=== PATIENT | female | born 1975 | race Caucasian/White ===

== ENCOUNTER 2016-11-14 18:39 | Emergency (ER) | payer MEDICARE ==
[~2016-11-14] VITALS: Ht 154.9 cm; Wt 74.8 kg
[2016-11-14 18:40] VITALS: BP_SYST 145
[2016-11-14] MEDS ORDERED: IBUPROFEN 800 MG TABLET PO ONE (20:15)
[2016-11-14 21:15] VITALS: BP_SYST 145
== END 2016-11-14 21:15 | disposition home or self-care (01) ==
LOC: SED 18:39
DX: M25.532 Pain in left wrist (principal); E11.9 Type 2 diabetes mellitus without complications; I10 Essential (primary) hypertension
CPT/HCPCS: 73090; 99284

== ENCOUNTER 2017-09-10 18:57 | Emergency (ER) | payer MEDICARE ==
[~2017-09-10] VITALS: Ht 162.6 cm; Wt 90.7 kg
[2017-09-10 19:13] VITALS: BP_SYST 156
[2017-09-10] MEDS ORDERED: LIDOCAINE VISCOUS 2%, 15 ML UDC MM ONE (21:00)
[2017-09-10] MEDS ORDERED: BELLADONNA ALKALOIDS/PHENOBARB 5 ML UDC PO ONE (21:00)
[2017-09-10] MEDS ORDERED: MAG-AL HYDROX/SIMETH 30 ML UDC PO ONE (21:00)
[2017-09-10] MEDS ORDERED: NACL 0.9% 1,000 ML IV ONE (21:24)
[2017-09-10] MEDS ORDERED: KETOROLAC TROMETHAMINE 30 MG VIAL IVP ONE (21:30)
[2017-09-10 22:05] LABS: BASOPHILS # (AUTO) 0.1 K/uL (0.0-0.2); BASOPHILS % (AUTO) 0.9 % (0.0-2.0); EOSINOPHILS # (AUTO) 0.1 K/uL (0.0-0.4); HEMATOCRIT 41.2 % (36-48); HEMOGLOBIN 13.3 g/dL (12.0-16.0); LYMPHOCYTES # (AUTO) 3.5 K/uL (1.0-5.5); LYMPHOCYTES % (AUTO) 31.6 % (20.5-51.5); MEAN CORPUSCULAR HEMOGLOBIN 26 pg (27-31); MEAN CORPUSCULAR HGB CONC 32 % (32-36); MEAN CORPUSCULAR VOLUME 82 fL (79.0-98.0); MONOCYTES # (AUTO) 0.6 K/uL (0.0-1.0); MONOCYTES % (AUTO) 5.7 % (1.7-9.3); NEUTROPHILS # (AUTO) 6.9 K/uL (1.8-7.7); NEUTROPHILS % (AUTO) 60.8 % (40.0-70.0); PLATELET COUNT (AUTO) 325 K/uL (130-430); RED BLOOD CELL COUNT(AUTO) 5.05 MIL/uL (4.2-6.2); RED CELL DISTRIBUTION WIDTH 18.6 % (9.0-15.0); WHITE BLOOD COUNT (AUTO) 11.2 K/uL (4.8-10.8)
[2017-09-10 22:11] LABS: CALCIUM 9.3 mg/dL (8.4-11.0); CREATININE 0.72 mg/dL (0.55-1.30); POTASSIUM 3.4 mmol/L (3.5-5.1)
[2017-09-10 22:15] LABS: TOTAL BILIRUBIN 0.3 mg/dL (0.0-1.0)
[2017-09-10] MEDS ORDERED: PANTOPRAZOLE SODIUM 40 MG/VIAL (PROTONIX) IVP ONE (22:30)
[2017-09-10 23:33] VITALS: BP_SYST 142
== END 2017-09-10 23:33 | disposition home or self-care (01) ==
LOC: SED 18:57
DX: K21.9 Gastro-esophageal reflux disease without esophagitis (principal); R03.0 Elevated blood-pressure reading, without diagnosis of hypertension; E11.9 Type 2 diabetes mellitus without complications
CPT/HCPCS: 36415; 76700; 80053; 83690; 85025; 93005; 96374; 96375; 99285; C9113; J1885; J2001; J7030

== ENCOUNTER 2017-11-17 11:30 | Emergency (ER) | payer MEDICARE ==
[~2017-11-17] VITALS: Ht 154.9 cm; Wt 70.3 kg
[2017-11-17 11:30] VITALS: BP_SYST 135
[2017-11-17] MEDS ORDERED: DEXAMETHASONE SOD PHOSPHATE 10 MG/ML VIAL IM ONE (12:15)
[2017-11-17] MEDS ORDERED: cefTRIAXone 1 GM VIAL IM ONE (12:15)
[2017-11-17 12:45] VITALS: BP_SYST 135
== END 2017-11-17 12:45 | disposition home or self-care (01) ==
LOC: SED 11:30
DX: T63.441A Toxic effect of venom of bees, accidental (unintentional), initial encounter (principal); T78.40XA Allergy, unspecified, initial encounter; E11.9 Type 2 diabetes mellitus without complications; K21.9 Gastro-esophageal reflux disease without esophagitis; Y92.89 Other specified places as the place of occurrence of the external cause
CPT/HCPCS: 96372; 99284; J0696; J1100

== ENCOUNTER 2017-11-18 07:31 | Emergency (ER) | payer MEDICARE ==
[~2017-11-18] VITALS: Ht 154.9 cm; Wt 70.3 kg
[2017-11-18 07:31] VITALS: BP_SYST 127
[2017-11-18 08:03] VITALS: BP_SYST 127
== END 2017-11-18 08:03 | disposition home or self-care (01) ==
LOC: SED 07:31
DX: T63.441A Toxic effect of venom of bees, accidental (unintentional), initial encounter (principal); Y92.89 Other specified places as the place of occurrence of the external cause; K21.9 Gastro-esophageal reflux disease without esophagitis; E11.9 Type 2 diabetes mellitus without complications
CPT/HCPCS: 99281

== ENCOUNTER 2018-03-30 21:30 | Emergency (ER) | payer MEDICARE ==
[~2018-03-30] VITALS: Ht 154.9 cm; Wt 70.3 kg
[2018-03-30 21:48] VITALS: BP_SYST 137
[2018-03-31] MEDS ORDERED: LevALBUTEROL HCL 1.25 MG/0.5 ML *CONC.* VIAL.NEB (XOPENEX CONC.) INH ONE (01:00)
[2018-03-31 02:12] VITALS: BP_SYST 128
== END 2018-03-31 02:12 | disposition home or self-care (01) ==
LOC: SED 21:30
DX: J06.9 Acute upper respiratory infection, unspecified (principal); R05 Cough; R03.0 Elevated blood-pressure reading, without diagnosis of hypertension; K21.9 Gastro-esophageal reflux disease without esophagitis; E11.9 Type 2 diabetes mellitus without complications
CPT/HCPCS: 94640; 99283; J7612

== ENCOUNTER 2018-05-27 18:26 | Emergency (ER) | payer BC, MEDICARE ==
[~2018-05-27] VITALS: Ht 154.9 cm; Wt 70.3 kg
[2018-05-27 18:35] VITALS: BP_SYST 142
[2018-05-27] MEDS ORDERED: ACETAMINOPHEN 500 MG TABLET PO ONE (19:15)
[2018-05-27] MEDS ORDERED: PENICILLIN G BENZATHINE 1.2 MMU/2 ML SYR IM ONE (19:15)
[2018-05-27] MEDS ORDERED: DEXAMETHASONE SOD PHOSPHATE 10 MG/ML VIAL IM ONE (19:15)
[2018-05-27 19:46] VITALS: BP_SYST 142
== END 2018-05-27 19:45 | disposition home or self-care (01) ==
LOC: SED 18:26
DX: J02.9 Acute pharyngitis, unspecified (principal); E11.9 Type 2 diabetes mellitus without complications; I10 Essential (primary) hypertension; K21.9 Gastro-esophageal reflux disease without esophagitis
CPT/HCPCS: 36415; 86403; 87081; 96372; 99283; J0561; J1100

== ENCOUNTER 2018-06-12 19:49 | Emergency (ER) | payer BC ==
[~2018-06-12] VITALS: Ht 154.9 cm; Wt 70.3 kg
[2018-06-12 20:01] VITALS: BP_SYST 126
--- NOTE | 2018-06-12 20:11 | NUR ---
Patient to ER bed 1 to gown for evaluation. Side rails up.
--- NOTE | 2018-06-12 20:29 | NUR ---
Pt came in complaining of a sore throat for a month. Was given Amoxicillin, Predisone, tylenol, and Naproxsyn with no relief. Reports that she completed the ABX treatment but has noticed no change. Reports Naproxsyn has helped with the pain when coughing. HX HTN and diabetes. PT reports she has been coughing for the past month with green sputum. Occasionally, she will see blood but states, "It's probably due to me coughing too much." NKDA. 12/22 chest pain due to cough. No other complaints/injuries noted.
--- NOTE | 2018-06-12 20:45 | NUR ---
OCHOA Patel at bedside examining patient.
--- NOTE | 2018-06-12 21:35 | NUR ---
ER MD Dr. Fenton reviewing results with pt.
--- NOTE | 2018-06-12 21:55 | NUR ---
Patient given written and verbal discharge instructions and verbalizes understanding. ER MD Fenton discussed with patient the results and treatment provided. Patient in stable condition. ID arm band removed. Rx of Azithromycin given. Patient educated on pain management and to follow up with PMD. Pain Scale 2. MD Fenton aware. Opportunity for questions provided and answered. Medication side effect fact sheet provided.
[2018-06-12 21:56] VITALS: BP_SYST 139
== END 2018-06-12 21:55 | disposition home or self-care (01) ==
LOC: SED 19:49
DX: J02.9 Acute pharyngitis, unspecified (principal); J40 Bronchitis, not specified as acute or chronic; K21.9 Gastro-esophageal reflux disease without esophagitis; E11.9 Type 2 diabetes mellitus without complications; I10 Essential (primary) hypertension; M54.2 Cervicalgia
CPT/HCPCS: 70490; 71045; 81025; 99284

== ENCOUNTER 2018-09-24 17:46 | Emergency (ER) | payer BC ==
[~2018-09-24] VITALS: Ht 154.9 cm; Wt 85.7 kg
[2018-09-24 17:58] VITALS: BP_SYST 138
--- NOTE | 2018-09-24 18:02 | NUR ---
Patient triaged and placed in waiting room. VSS and patient appears in no acute distress at this time. Accompanied by self, awaiting available bed, and MD notified of need for MSE.
--- NOTE | 2018-09-24 18:37 | NUR ---
[facility] rails up. Report given to PATSY Gardner.
--- NOTE | 2018-09-24 18:40 | NUR ---
Pt AAOx4 ambulated into ED c/o 09/21 pain to bilateral feet x 2 months. Pt states she had a new RX of gabapentin with no relief. No other injuries/complaints per pt/noted. Will continue to monitor.
--- NOTE | 2018-09-24 18:45 | NUR ---
ER Dr. Wilson at bedside examining patient.
--- NOTE | 2018-09-24 18:54 | NUR ---
Patient given written and verbal discharge instructions and verbalizes understanding. ER MD Wilson discussed with patient the results and treatment provided. Patient in stable condition. ID arm band removed. No Rx given. Patient educated on pain management and to follow up with PMD. Pain Scale 0. Opportunity for questions provided and answered. Medication side effect fact sheet provided.
[2018-09-24 18:56] VITALS: BP_SYST 146
== END 2018-09-24 18:56 | disposition home or self-care (01) ==
LOC: SED 17:46
DX: G62.9 Polyneuropathy, unspecified (principal); E11.9 Type 2 diabetes mellitus without complications; K21.9 Gastro-esophageal reflux disease without esophagitis; I10 Essential (primary) hypertension
CPT/HCPCS: 99283

== ENCOUNTER 2019-04-24 21:57 | Emergency (ER) | payer BC ==
[~2019-04-24] VITALS: Ht 154.9 cm; Wt 71.7 kg
[2019-04-24 22:21] VITALS: BP_SYST 122
[2019-04-24 23:11] LABS: INFLUENZA A&B ANTIGEN SCREEN NEGATIVE FOR A & B (NEGATIVE); STREPTOCOCCUS A SCREEN (RAPID) NEGATIVE (NEGATIVE)
[2019-04-25] MEDS ORDERED: AMOXICILLIN 500 MG CAPSULE PO ONE (01:15)
[2019-04-25 01:33] VITALS: BP_SYST 117
== END 2019-04-25 01:33 | disposition home or self-care (01) ==
LOC: SED 21:57
DX: J03.90 Acute tonsillitis, unspecified (principal); E11.9 Type 2 diabetes mellitus without complications; K21.9 Gastro-esophageal reflux disease without esophagitis; I10 Essential (primary) hypertension
CPT/HCPCS: 36415; 86403; 86710; 87081; 99283

== ENCOUNTER 2022-07-21 12:28 | Emergency (ER) | payer BC ==
[~2022-07-21] VITALS: Ht 154.9 cm; Wt 73.0 kg
[2022-07-21 12:34] VITALS: BP_SYST 132
--- NOTE | 2022-07-21 12:34 | NUR ---
Patient to ER bed H1 to gown for evaluation. Side rails up.
--- NOTE | 2022-07-21 12:45 | NUR ---
ER DR. SOTO AT THE BEDSIDE EXAMINING PT
--- NOTE | 2022-07-21 13:16 | NUR ---
COVID AND STREP THROAT SWAB COLLECTED AND SENT TO LAB
[2022-07-21 13:36] LABS: STREPTOCOCCUS A SCREEN (RAPID) NEGATIVE (NEGATIVE)
[2022-07-21] MEDS ORDERED: PSEU30TA36 PO (13:55)
[2022-07-21] MEDS ORDERED: IBUP-1969 PO (13:55)
[2022-07-21 14:45] VITALS: BP_SYST 132
--- NOTE | 2022-07-21 14:46 | NUR ---
Patient given written and verbal discharge instructions and verbalizes understanding. ER MD discussed with patient the results and treatment provided. Patient in stable condition. ID arm band removed. Rx of Ibuprofen and Sudafed given. Patient educated on pain management and to follow up with PMD. Pain Scale 2/10 . Opportunity for questions provided and answered. Medication side effect fact sheet provided.
== END 2022-07-21 14:46 | disposition home or self-care (01) ==
LOC: SED 12:28
DX: J02.9 Acute pharyngitis, unspecified (principal); M79.10 Myalgia, unspecified site; R50.9 Fever, unspecified; K21.9 Gastro-esophageal reflux disease without esophagitis; E11.9 Type 2 diabetes mellitus without complications; I10 Essential (primary) hypertension; Z79.899 Other long term (current) drug therapy; Z20.822 Contact with and (suspected) exposure to COVID-19
CPT/HCPCS: 36415; 70360-TC; 86403; 87081; 99284